=== PATIENT | female | born 2005 | race Two or more races ===

== ENCOUNTER 2025-04-13 20:18 | Emergency (ER) | payer MEDICAID, SELFPAY ==
[2025-04-13 20:19] VITALS: BMI 33.3
[2025-04-13 20:31] VITALS: BP 121/84; PULSE 85; RESP 16; TEMP 37; O2SAT 98
--- NOTE | 2025-04-13 20:38 | XR_ITS ---
Examination: Transvaginal ultrasound of the pelvis, complete Technique: Transvaginal sonographic images pelvis performed using escobedo scale imaging Exam date and time: April 13, 2025, 2100 hours INDICATIONS: Worsening vaginal bleeding 1 month FINDINGS: Uterus 8.3 cm endometrial stripe 1.9 cm No uterine mass or intrauterine gestation Right ovary 4.2 cm arterial flow Left ovary 5.3 cm arterial flow 2.7 x 2.4 x 2.3 cm cyst Mild fluid in the cul-de-sac and left adnexa IMPRESSION: No uterine mass or intrauterine gestation Left ovarian simple cyst 2.7 x 2.4 x 2.3 cm Mild fluid in the left adnexal region and cul-de-sac, clinical correlation advised.
--- NOTE | 2025-04-13 20:38 | PD.EDRME ---
Rapid Medical Screening Exam [facility] Arrival date/time: 04/13/25 20:18 19F with no significant PMH presents to ED with 3 weeks of worsening vaginal bleeding and pelvic pain. Patient denies vaginal discharge and dysuria. Chief Complaint: Vaginal Bleeding Vital signs: Vital Signs Temperature 98.6 F 04/13/25 20:31 Pulse Rate 85 04/13/25 20:31 Respiratory Rate 16 04/13/25 20:31 Blood Pressure 121/84 04/13/25 20:31 Pulse Oximetry (%) 98 04/13/25 20:31 Oxygen Delivery Method Room Air 04/13/25 20:31 Exam: Unremarkable Clinical Impression: vs vaginal bleeding vs fibroid vs PID vs pelvic pain
[2025-04-13 20:52] LABS: Basophils # (Auto) 0.1 Thou/mm3 (0.0-0.2); Basophils % (Auto) 0 % (0-2.5); Eosinophils # (Auto) 0.3 Thou/mm3 (0.0-0.5); Eosinophils % (Auto) 2 % (0-10); Hematocrit 33.1 % (36.0-46.0); Hemoglobin 11.1 g/dL (12.0-16.0); Immature Granulocytes Auto 0.04 Thou/mm3 (0.00-0.00); Lymphocytes # (Auto) 4.4 Thou/mm3 (1.0-4.8); Lymphocytes % (Auto) 32 % (10-50); Mean Corpuscular HGB Conc 33.5 g/dl (31.0-37.0); Mean Corpuscular Hemoglobin 30.2 pg (25.0-35.0); Mean Corpuscular Volume 90 fL (80-100); Monocytes # (Auto) 0.5 Thou/mm3 (0.0-0.8); Monocytes % (Auto) 4 % (0-12); Neutrophils # (Auto) 8.3 Thou/mm3 (1.8-7.7); Neutrophils % (Auto) 61 % (37-80); Nucleated Red Blood Cell # 0.00 Thou/mm3 (0.00-0.00); Nucleated Red Blood Cell % 0 /100 WBC (0); Platelet Count 316 Thou/mm3 (140-440); RDW Standard Deviation 42.3 fL (36.4-46.3); Red Blood Count 3.68 Miln/mm3 (4.00-5.20); White Blood Count 13.7 Thou/mm3 (4.5-11.0)
[2025-04-13 21:06] LABS: HCG Qualitative,Urine Negative
[2025-04-13 21:08] LABS: Alanine Aminotransferase 24 U/L (10-49); Albumin, Serum 4.5 gm/dL (3.5-5.0); Albumin/Globulin Ratio 2.3 (1.2-2.2); Alkaline Phosphatase 96 U/L (46-116); Anion Gap 9 (7-16); Aspartate Amino Transferase 20 U/L (0-34); BUN/Creatinine Ratio 8 Ratio (12-20); Bilirubin,Total 0.2 mg/dL (0.3-1.2); Blood Urea Nitrogen 5 mg/dL (9-23); Calcium 10.0 mg/dL (8.3-10.6); Calcium (Corrected) 10.0 mg/dL (8.5-10.1); Carbon Dioxide 26.5 mMol/L (20.0-31.0); Chloride 104 mMol/L (98-107); Creatinine (Component) 0.6 mg/dL (0.6-1.3); Estimated Creatinine Clearance 166.4 mL/min (>60); Globulin 2.0 gm/dL (2.3-3.5); Glucose 110 mg/dL (74-106); Osmolality,Calculated 275 (275-295); Potassium 4.0 mMol/L (3.4-5.1); Sodium 139 mMol/L (136-145); Total Protein 6.5 gm/dL (5.7-8.2); eGFR > 60 See Note
--- NOTE | 2025-04-13 21:21 | EDNOTE_ITS ---
ED General RME/HPI General Chief complaint: Vaginal Bleeding Stated complaint: VAGINAL BLEEDING X 3 WEEKS Time Seen by Provider: 04/13/25 21:06 Arrival date/time: 04/13/25 20:18 CC: Vaginal bleeding HPI patient has had a vaginal bleed for the past 2 weeks. The patient states she is normally irregular with regular menses. Patient denies fever chills chest pain or shortness of breath. Patient states she has had intermittent sharp stabbing abdominal cramps that resolved almost spontaneously. Patient denies painful urination bloody urination constipation or diarrhea. He was referred from [facility] for further workup. Currently patient is awake alert oriented nontoxic-appearing and not in any acute distress. RME / HPI RME / HPI narrative: 04/13/25 20:18 19F with no significant PMH presents to ED with 3 weeks of worsening vaginal bleeding and pelvic pain. Patient denies vaginal discharge and dysuria. Exam: Unremarkable Impression: vs vaginal bleeding vs fibroid vs PID vs pelvic pain Related Data Previous Rx's ?Medication ?Instructions ?Recorded medroxyprogesterone 5 mg tablet 5 mg PO QDAY #7 tabs 1 06/13/24 (Provera) Allergies Allergy/AdvReac Type Severity Reaction Status Date / Time No Known Allergies Allergy Verified 04/13/25 20:19 Review of Systems Review of Systems Narrative Review of Systems: GEN: No fever, no chills, no weight loss EYES: No discharge, no visual changes, no pain HEENT: No ear pain, no congestion, no sore throat PULM: No shortness of breath, no cough, no congestion CV: No chest pain, no dyspnea on exertion, no palpitations GI: No nausea, no vomiting, no diarrhea, no pain, no constipation : No frequency, no urgency, no dysuria MUSC/SKEL: No joint pain, no back pain SKIN: No rash PSYCH: No hallucinations, no depression HEME/LYMPH: No easy bleeding or bruising tendencies NEURO: No weakness, no headache Past Medical History Social History SMOKING STATUS: Never smoker ED Exam Narrative Physical exam: [General: Obese not in any acute distress Head normocephalic HEENT: Within acceptable limits Neck is supple nontender Chest equal chest rise nontender to palpation Respiratory: Clear to auscultation no wheezes crackles or rubs CV: Rate rhythm is regular no murmurs rubs or clicks Abdomen is distended secondary to body habitus soft nontender no masses positive bowel sounds all 4 quadrants Back: No CVA tenderness no spinous process tenderness from cervical spine thoracic and lumbar spine Skin: Intact no petechiae rash induration ulceration or crepitus Extremities: Moving all extremity against resistance cap refill less than 2 seconds neurosensory intact Neuro: Awake alert oriented x3 Glascow coma 15 no focal deficits] Course Quality Measures none Orders Category Date Time Status US transvaginal Stat Exams 04/13/25 20:38 Completed CBC Stat Lab 04/13/25 20:45 Completed CMP [Comprehensive Metabolic Panel] Stat Lab 04/13/25 20:45 Completed HCG Qualitative,Urine Stat Lab 04/13/25 20:54 Completed Vital Signs Vital signs: Vital Signs Temperature 98.6 F 04/13/25 20:31 Pulse Rate 85 04/13/25 20:31 Respiratory Rate 16 04/13/25 20:31 Blood Pressure 121/84 04/13/25 20:31 Pulse Oximetry (%) 98 04/13/25 20:31 Oxygen Delivery Method Room Air 04/13/25 20:31 Discharge Plan Plan Patient Disposition: HOME (Self Care) Patient condition on transfer: Stable Prescriptions/Referrals Prescriptions/Med Rec: New medroxyprogesterone [Provera] 5 mg tablet 5 mg PO QDAY Qty: 7 0RF Referrals: Master (Referring),MD Bennett [Referring Provider, CHARACTER ACTOR] - In 1 week Problem List Clinical Impression: Dysfunctional uterine bleeding Patient/Caregiver Discharge Instructions Other Activity Instructions:: Keep the medication as prescribed if there is a worsening of symptoms follow-up with the CHARACTER ACTOR listed above. Print Language: Romansh Stand Alone Forms: Maira Award Info., Work/School Release, Patient Portal Info Letter PRIMO/SETH Supervising Physician PA/CASHIER HOST/HOSTESS Supervising Physician: Tigre Arroyo ENP MDM Clinical Information Provided by: patient Medical Records reviewed [facility] Meds/Rx considered, not ordered None Labs/Rad/Tests considered, not ordered None Chronic Illness/Social Conditions which may negatively complicate care or outcome(s)-explain: None or not applicable EKG EKG not done Labs Labs: interpreted by or Lab(s) Interpretation(s): CBC shows a mild leukocytosis of 13.7 H&H of 11.1 and 33.1 note: No old labs for comparison no thrombocytopenia CMP shows no acute electrolyte imbalances renal impairment transaminitis or T. bili elevation. hCG urine is negative Imaging Imaging interpretation: interpreted by me
== END 2025-04-13 21:57 | disposition home or self-care (01) ==
LOC: SERX 21:39
PROVIDERS: Physician Assistant; Emergency Provider Emergency Medicine; PCP Family Medicine
DX: N39.3 Stress incontinence (female) (male) (principal)
CPT/HCPCS: 36415; 76830; 80053; 81025; 85025; 99283